=== PATIENT | male | born 1960 | race Caucasian/White ===

== ENCOUNTER → 2018-09-21 | Outpatient (CLI) | payer OTHER ==
[~2018-09-21] MED LIST: IOHEXOL 100 ML ONE; METOPROLOL 5 MG INJ ONE; NITROGLYCERIN AEROSOL (4.9 GM) ONE
== END | disposition home or self-care (01) ==
LOC: C/S 10:09
PROVIDERS: ATTEND Internal Medicine
DX: R94.39 Abnormal result of other cardiovascular function study (principal); R07.9 Chest pain, unspecified; R06.02 Shortness of breath
CPT/HCPCS: 75571; 75574; Q9967; Z7610

== ENCOUNTER 2018-10-25 09:05 | Day surgery (SDC) | payer OTHER ==
[~2018-10-25] VITALS: Ht 177.8 cm; Wt 88.6 kg
[~2018-10-25 09:05] MED LIST changes: +ASPI-903 PO; -IOHEXOL 100 ML ONE; -METOPROLOL 5 MG INJ ONE; +MVI DAILY; -NITROGLYCERIN AEROSOL (4.9 GM) ONE; +PRED10TA PO
[2018-10-25 10:40] VITALS: Ht 177.8 cm; Wt 88.6 kg
[2018-10-25 10:55] VITALS: BP 153/74; PULSE 55; RESP 18
[2018-10-25] MEDS ORDERED: FENTAnyl 50 MCG/ML VIAL ONE (11:00)
[2018-10-25] MEDS ORDERED: PROPOFOL 20 ML ONE ×2 (11:00→11:20)
[2018-10-25 11:47] VITALS: BP 112/68; PULSE 73; RESP 17
[2018-10-25 12:00] VITALS: BP 129/76; PULSE 70; RESP 16
== END 2018-10-25 16:02 | disposition home or self-care (01) ==
LOC: GIL 09:05
PROVIDERS: ATTEND Internal Medicine Gastroenterology
DX: Z12.11 Encounter for screening for malignant neoplasm of colon (principal); K64.8 Other hemorrhoids; I85.00 Esophageal varices without bleeding; K62.89 Other specified diseases of anus and rectum
CPT/HCPCS: 43235; 45378; J3010; Z7610